=== PATIENT | male | born 1950 | race Caucasian/White ===

== ENCOUNTER 2018-07-07 02:01 | Inpatient (IN) | payer OTHER, MEDICARE ==
[2018-07-06 14:51] LABS: INR 1.14
[2018-07-07] VITALS (15 sets, daily range): BP systolic 125–172; BP diastolic 69–135
[~2018-07-07] VITALS: Ht 175.3 cm; Wt 147.4 kg
[~2018-07-07 02:01] MED LIST: ASPI81TA94 PO; ATEN100T93 PO; CARV25TA78 PO; DIGO125T73 PO; FURO40TA35 PO; GLUC-198 PO; HYDR12.561 PO; LISI-374 PO; MULT-1335 PO; WARF-1 PO; WARF7.5T26 PO
[2018-07-07] MEDS ORDERED: fentaNYL CITR 100 MCG/2 ML AMP ONE ×4 (07:00→12:48)
[2018-07-07] MEDS ORDERED: DEXAMETHASONE SOD 4 MG/ML VIAL ONE (07:01)
[2018-07-07] MEDS ORDERED: METOCLOPRAMIDE 10 MG/2 ML SDV ONE (07:01)
[2018-07-07] MEDS ORDERED: LIDOCAINE MPF 1% 5 ML VIAL ONE (07:01)
[2018-07-07] MEDS ORDERED: PROPOFOL EMUL(*) 10MG/ML 20 ML 20 ML ONE (07:01)
[2018-07-07] MEDS ORDERED: ONDANSETRON 4 MG/2 ML VIAL ONE (07:01)
[2018-07-07] MEDS ORDERED: ROPIVACAINE/EPI/CLONIDINE/KET 50 ML SYRINGE INJ ONE (07:15)
[2018-07-07] MEDS ORDERED: MIDAZOLAM 2 MG/2 ML VIAL IVP PRN (07:15)
[2018-07-07] MEDS ORDERED: ceFAZolin(*) 2GM/D5W 50ML 50 ML IVPB ONE (07:15)
[2018-07-07] MEDS ORDERED: TRANEXAMIC AC 1000 MG/10ML SDV 1,000 MG in DEXTROSE 5% 50 ML BAG 50 ML IV ONE (07:15)
[2018-07-07] MEDS ORDERED: CELECOXIB 200 MG CAP PO ONE (07:15)
[2018-07-07] MEDS ORDERED: ACETAMINOPHEN 500 MG TAB PO ONE (07:15)
[2018-07-07] MEDS ORDERED: LIDOCAINE/SOD BICARB 8.4% SYR ID ONE (07:15)
[2018-07-07] MEDS ORDERED: NORMOSOL R SOLN(*) 1000 ML BAG 1,000 ML IV PRN (07:15)
[2018-07-07] MEDS ORDERED: FAMOTIDINE 20 MG TAB PO ONE (07:15)
[2018-07-07] MEDS ORDERED: PREGABALIN 150 MG CAPSULE PO ONE (07:15)
[2018-07-07] MEDS ORDERED: BACITRACIN 50000 UNIT/VIAL 100,000 UNIT in NS 0.9% 3000 ML IRRIGATION BAG 3,000 ML IR ONE (07:15)
[2018-07-07] MEDS ORDERED: PHENYLEPHRINE 10 MG/1 ML VIAL ONE (09:34)
[2018-07-07] MEDS ORDERED: ROCURONIUM BROM 10 MG/ML 5 ML ONE (09:45)
[2018-07-07] MEDS ORDERED: LABETALOL HCL 25 MG/5 ML SYRINGE ONE (11:55)
--- NOTE | 2018-07-07 12:49 | OPERATIVE REPORT 1 ---
EVENT DATE: July 07, 2018 SURGEON: Porfirio Walters MD ANESTHESIOLOGIST: Armand Aldana MD ANESTHESIA: General plus block. DEAN: CALIN Cardenas, PIN SORTER AND BAGGER PREOPERATIVE DIAGNOSIS Right knee osteoarthritis of the medial compartment. POSTOPERATIVE DIAGNOSIS Right knee osteoarthritis of the medial compartment. PROCEDURE PERFORMED Right unicompartmental padma-knee arthroplasty of the medial side. FINDINGS The patient had a significant amount of arthritic changes associated with the medial side, but was amenable for a partial knee replacement. ESTIMATED BLOOD LOSS About 200 mL. DRAINS None. COMPLICATIONS None. TOURNIQUET TIME About 18 minutes which was only up when we realized we had a venous tourniquet. We then let it down for the rest of the case. IMPLANTS USED Wise size large right specific medial femoral component with a size C tibial tray and a 4 large poly. SPECIMENS None. INDICATIONS AND HISTORY This patient is a 67-year-old male who presented to my clinic for evaluation of knee pain and irritation going on for some time. He continued to have problems despite conservative management, so he wanted to go ahead with a partial knee replacement. We went over the risks and benefits associated with this. I told him he may need to have a total knee replacement at some point and he said he understood that and he wanted to try and get away with a medial knee replacement to try and hold off on the total knee replacement as long as possible. We went over the risks and benefits associated with this and informed consent was obtained at the last clinic visit. DESCRIPTION OF PROCEDURE As the patient was brought in the operating room, he and the procedure were both verified. He was placed supine on the operative table and after being given a spinal by Anesthesia, the right lower extremity was then prepped and draped in the usual fashion and a timeout was observed verifying the correct patient and procedure. The standard incision was made over the medial side of the knee after inflation of the tourniquet. This was taken through the skin and subcutaneous tissue and then I was able to cauterize some bleeders on the way in and then I was able to go through medial parapatellar approach and unfortunately, we still had quite a bit of bleeding associated with this and so therefore we let the tourniquet down and realized we had a venous tourniquet after 18 minutes. I then was able to peel back a little bit of the medial side in order to gain access to the medial tibial prominence. I then put in the large guide for the Wise knee system and then pinned it to the tibia using the extramedullary guide provided by the system. Once I had it into good position, I then put in the slotted cutting guide and then cut down on the medial side just next to the ACL insertion and then used the sagittal side to cut across. Unfortunately, we were unable to get the posterior piece out nor the inferior piece out all in one piece, and so therefore I then had to take it out a little bit piecemeal, and so therefore we then were able to clear out the entire aspect. I then freshened up that cut a little bit as it did get a little bit damaged secondary due to removal of the components. I then turned attention to the femur where I was able to drill the intramedullary guide superiorly. I was then able to get the standard four-in-one cutting block onto the medial side. Unfortunately, this put it a little bit out to the medial side, but this is where it fit best associated with the guide pin and so therefore the guide pin was placed and I drilled the distal holes into the distal femur. I then was able to put in the 0 pin and then was able to ream down to 0 without any difficulty. Once I was able to do this, I then tried initially to try a trial and then realized we had not cut the distal femur aspect and so therefore we put on the distal femur cutting guide and then I was able to cut this without any difficulty and this allowed the trial to sit on much better. The trial set on much better and we used the C tray which fit best on the tibia and this is when we were found to have 3 mm of space which was excellent on both flexion and extension. There was no need for further reaming or cutting. I then put on the final cutting block and reaming block in order to ream up more superiorly. I took off the edge and the medial osteophytes associated with this and then this was followed by the posterior osteophytes. I then was able to open up the posterior aspect and removed the meniscus on this side and also a large posterior osteophyte from this side. Once I was able to do that, we had significant increase in space available to this area. I then trialed the 3 mm poly with the C trial and the large femoral block. This fit very well and so therefore these were some of the final components chosen. I then was able to prep the tibia without any difficulty using the saw-tooth tooth brush blade and then clearing out the canal and then putting in the trial with the fin attached to it. We then cemented in the tibial component first and then the femoral component second. Once everything was cemented in and it was hardened. After we let it harden about 15 degrees without pressure on the heel, I was then able to trial the polys. Once again, the 3 fit pretty well but the 4 fit just a little bit better and so therefore we chose the 4 for a final component. Once we did this, everything looked good with flexion and extension. There was no signs of problems with varus or valgus stress. Everything rotated and moved very well, so therefore we irrigated with copious amounts of saline which we had throughout the case using pulsatile lavage, closed the medial parapatellar approach with a #2 Quil, this was then followed by 2-0 Vicryl in the fat layer and then a 2-0 Stratafix in the subcutaneous layer and then a subcuticular 4-0 running Monocryl in a running subcuticular stitch. This was then dressed with a Primapore and also we did an injection interarticularly of a pain cocktail prior to closure. Once we got all of the dressings on, the patient was then awakened and extubated and transferred to the PACU in stable condition where he will be admitted overnight. FARA
--- NOTE | 2018-07-07 13:05 | RADIOLOGY IMAGING REPORT ---
FACILITY: [facility] - [place] PATIENT NAME: Kevin Jauregui : 1950 MR: [id number] V: [id number] EXAM DATE: ORDERING PHYSICIAN: JOEL ABARCA TECHNOLOGIST: Location: [facility] - [place] Patient: Kevin Jauregui : 1950 Visit/Account:[id number] Date of Sevice: 07/07/2018 KNEE LIMITED RIGHT Indication: Medial compartment arthroplasty Comparison: None available Findings: 2 views right knee were obtained. Changes from medial compartment hemiarthroplasty. Components appear well seated without periprosthet ic lucency or fracture. Lateral compartment joint space is preserved with small marginal osteophytos is.. There is fluid and gas within the superficial and subcutaneous soft tissues and within the joint caps ule. IMPRESSION: 1. Changes from medial right knee arthroplasty without findings of hardware complication. 2. Mild osteoarthritic changes of the lateral compartment. Report Dictated By: Tee Patel MD at 07/07/2018 12:58 PM Report E-Signed By: Tee Patel MD at 07/07/2018 12:59 PM WSN:[id number]
[2018-07-07] MEDS ORDERED: PROMETHAZINE 25 MG/ML 1 ML AMP IVP PRN (13:10)
[2018-07-07] MEDS ORDERED: MAGNESIUM HYDROXIDE* 30ML UDCP PO PRN (13:10)
[2018-07-07] MEDS ORDERED: MAGNESIUM CITRATE 300 ML BTL PO PRN (13:10)
[2018-07-07] MEDS ORDERED: ONDANSETRON 4 MG/2 ML VIAL IVP PRN (13:10)
[2018-07-07] MEDS ORDERED: BISACODYL 10 MG SUPP PR PRN (13:10)
[2018-07-07] MEDS ORDERED: ZOLPIDEM TARTRATE 5 MG TAB PO PRN (13:10)
[2018-07-07] MEDS ORDERED: HYDROmorphone HCL 2 MG/ML SDV IVP PRN (13:10)
[2018-07-07] MEDS ORDERED: LR 1000 ML BAG 1000 ML IV PRN (13:10)
[2018-07-07] MEDS ORDERED: diphenhydrAMINE 25 MG CAP PO PRN (13:10)
[2018-07-07] MEDS ORDERED: diphenhydrAMINE 50 MG/ML VIAL IVP PRN (13:10)
[2018-07-07] MEDS ORDERED: FLUSH 10 ML SYR IVP PRN (13:10)
--- NOTE | 2018-07-07 14:55 | NUR ---
Physical Therapy Impression PT eval complete. Pt requires Dayn for bed mobility with HOB raised and use of trapeze frame. Pt completed STS transfer with RW and CGA. Pt with poor balance once standing and impulsive with mobility, requiring Dany to safely side step to HOB. PT instruction for supine LE ther-ex with emphasis on good quad contraction. PT encouraged pt to rest with LE flat on bed to facilitate extension of knee. Pt anticipates d/c with OP PT services. Physical Therapy Goals 1: Pt to cmplete bed mobility with Dany 2: Pt to cmplete transfers with SBA and pt's walker 3: Pt to ambulate 150' with SBA and pt's walker 4: Pt to asc/desc 2 stairs with CGA Patient's Goals
--- NOTE | 2018-07-07 15:06 | Hospitalist Consultation ---
History of Present Illness Requesting Physician Dr. Armendariz Reason for Consult Medical Management of Comorbidities Chief Complaint s/p right unicompartmental knee replacement History of Present Illness He was admitted s/p right unicompartmental knee replacement. It is reported the surgery went well and without complication. History Problems: (1) SARA (obstructive sleep apnea) Status: Chronic (2) Hypertension Status: Chronic (3) Cardiomyopathy Status: Chronic (4) Atrial fibrillation Status: Chronic Home Meds Reported Medications Multivitamin With Minerals (MULTIPLE VITAMIN) 1 Each Tablet, 1 EACH PO DAILY, TAB 06/30/18 Warfarin Sodium (COUMADIN) 7.5 Mg Tablet, 7.5 MG PO MON,FRI,Fri06/30/18 Warfarin Sodium (COUMADIN) 5 Mg Tablet, 5 MG PO FRI,FRI,,Fri06/30/18 Glucosa Connelly 2KCL/Chondroitin Connelly (GLUCOSAMINE & CHONDROITIN CAP) 1 Each Capsule, 1 EACH PO DAILY, CAPSULE 06/30/18 Furosemide (LASIX) 40 Mg Tablet, 1 TAB PO DAILY, TAB 06/30/18 Carvedilol (CARVEDILOL) 25 Mg Tablet, 25 MG PO BID, #10 TAB 06/30/18 Aspirin (ASPIRIN) 81 Mg Tab.chew, 81 MG PO QDAY, TAB.CHEW 06/30/18 Lisinopril (LISINOPRIL) 40 Mg Tablet, 40 MG PO QDAY 12/09/13 Discontinued Reported Medications Hydrochlorothiazide (HYDROCHLOROTHIAZIDE) 12.5 Mg Tablet, 1 TAB PO QDAY TAKE ONE TABLET BY MOUTH EVERY DAY 12/09/13 Atenolol (ATENOLOL) 100 Mg Tablet, 1 TAB PO QDAY, TAB TAKE ONE TABLET BY MOUTH ONCE A DAY 12/09/13 Discontinued Scripts Digoxin (DIGOXIN) 125 Mcg Tablet, 125 MCG PO QDAY, #30 TAB 0 Refills Prov:KRISTIN BERKOWITZ MD 12/09/13 Allergies: Coded Allergies: No Known Drug Allergies (Unverified , 12/09/13) Patient History: Cardiac arrest FATHER, MOTHER, FH: alcoholism FATHER, FH: diabetes mellitus MOTHER, FH: diabetic complications MOTHER, Hx Smoking: Yes (1PP X2 DAYS X 25 YRS QUIT IN 1999) Smoking Status: Former Smoker Caffeine Intake: Coffee Caffeine/Cups Per Day: 20 OUNCE CUP DAILY Hx Alcohol Use: No Hx Substance Use Disorder: No Social Drug Use: Never History of IV Drug Use: No Review of Systems All Systems Reviewed/Normal: Yes, Except as Noted Exam Vital Signs Vital Signs Date Time Temp Pulse Resp B/P (MAP) Pulse Ox O2 Delivery O2 Flow Rate FiO2 07/07/18 13:52 98.1 59 16 166/83 (110) 95 Nasal Cannula 3.0 General Appearance: Alert, Awake, No Acute Distress, Afebrile Neuro: No Gross deficits Cardiovascular: Regular Rate and Rhythm Respiratory: No Respiratory Distress, Clear to Auscultation Psych: Alert & Oriented X3, Appropriate Mood & Affect Assessment and Plan Problems: (1) S/P right unicompartmental knee replacement Status: Acute Assessment & Plan: Followed by Dr. Walters. He will be restarted on his usual Coumadin dose tonight. (2) Atrial fibrillation Status: Chronic Assessment & Plan: He is on chronic treatment with Carvedilol and Warfarin. Carvedilol has been restarted with hold parameters. Will resume Warfarin tonight. (3) Cardiomyopathy Status: Chronic Assessment & Plan: He does have ICD and Pacemaker. Interrogation done in PACU, working normally. (4) Hypertension Status: Chronic Assessment & Plan: Continue chronic Lisinopril with hold parameters. Will hold Lasix at this time. (5) SARA (obstructive sleep apnea) Status: Chronic Assessment & Plan: He did bring his CPAP to use during admission. Venous Thromboembolism Antithrombotics Is Pt On Any Antithrombotics?: Yes Exam Sepsis Risk: No Definite Risk ROB RODRIGUEZP Jul 07, 2018 15:06
--- NOTE | 2018-07-07 15:37 | NUR ---
SPANISH TUTOR in use for pain control. Pt moving during BP assessment; Pt refused reassessment after extraneous reading.
[2018-07-07] MEDS ORDERED: NS(*) 0.9% 500 ML BAG 500 ML ONE (17:50)
[2018-07-07] MEDS: ceFAZolin(*) 2GM/D5W 50ML 50 ML IVPB SCH (17:57)
[2018-07-07] MEDS: CARVEDILOL 25 MG TABLET PO SCH (18:15)
--- NOTE | 2018-07-07 18:16 | NUR ---
Pt self-administered medications scheduled for 07/07 @ 2100 from home supply. Educated pt, pt verbalized understanding.
[2018-07-07] MEDS ORDERED: WARFARIN SOD 5 MG TAB PO SCH (21:00)
[2018-07-08] MEDS: ceFAZolin(*) 2GM/D5W 50ML 50 ML IVPB SCH ×2 (00:47→08:49)
[2018-07-08 07:47] VITALS: BP 142/83
[2018-07-08] MEDS ORDERED: OXYC-865 PO (08:14)
[2018-07-08] MEDS: CARVEDILOL 25 MG TABLET PO SCH (08:48)
[2018-07-08 08:49] VITALS: BP 133/69
[2018-07-08] MEDS ORDERED: ASPIRIN 81 MG CHEW PO SCH (09:00)
[2018-07-08] MEDS ORDERED: LISINOPRIL 20 MG TAB PO SCH (09:00)
--- NOTE | 2018-07-08 10:41 | Hospitalist Progress Note ---
Subjective Progress Notes Subjective He was admitted after knee surgery. He has no complaints this morning. He had no acute events overnight. He would like to go home today. Patient Complains of: Cardiovascular: No: Chest Pain Respiratory: No: Shortness of Breath Physical Exam Vital Signs Date Time Temp Pulse Resp B/P (MAP) Pulse Ox O2 Delivery O2 Flow Rate FiO2 07/08/18 08:49 66 133/69 (90) 07/08/18 07:54 94 Nasal Cannula 1.0 07/08/18 07:47 99.0 16 Intake and Output 07/08/18 01:00 Intake Total 2140 ml Balance 2140 ml Intake Oral 240 ml IV Total 1900 ml # Voids 1 General Appearance: Alert, Awake, No Acute Distress, Afebrile Neuro: No Gross deficits Cardiovascular: Regular Rate and Rhythm Respiratory: No Respiratory Distress, Clear to Auscultation GI: Soft and Non-Tender Psych: Alert & Oriented X3, Appropriate Mood & Affect Result Diagram: 07/08/18 0543 Assessment and Plan Problems: (1) S/P right unicompartmental knee replacement Status: Acute Assessment & Plan: Followed by Dr. Walters. He resumed his usual Coumadin dose 07/07. He will get INR checked in one week. No bridging required. (2) Atrial fibrillation Status: Chronic Assessment & Plan: He is on chronic treatment with Carvedilol and Warfarin. Carvedilol was restarted with hold parameters. (3) Cardiomyopathy Status: Chronic Assessment & Plan: He does have ICD and Pacemaker. Interrogation done in PACU, working normally. (4) Hypertension Status: Chronic Assessment & Plan: Continue chronic Lisinopril with hold parameters. He will resume Lasix tomorrow at home. (5) SARA (obstructive sleep apnea) Status: Chronic Assessment & Plan: He did bring his CPAP to use during admission. He will be going home with oxygen. He will follow up with PCP in 1-2 weeks regarding oxygen use. Exam Sepsis Risk: No Definite Risk ROB RODRIGUEZ July 08, 2018 10:41
[2018-07-08 12:44] VITALS: BP 144/81
--- NOTE | 2018-07-08 13:45 | NUR ---
Physical Therapy Impression Pt safe for DC when medically appropriate. Attempted to ambulate on room air, SO2 decreased to 83%. 1 L O2 increased SO2 to >90%. Physical Therapy Goals 1: Pt to cmplete bed mobility with Dany 2: Pt to cmplete transfers with SBA and pt's walker 3: Pt to ambulate 150' with SBA and pt's walker 4: Pt to asc/desc 2 stairs with CGA Patient's Goals
[2018-07-08] MEDS ORDERED: WARFARIN SOD 7.5 MG TAB PO SCH (21:00)
== END 2018-07-08 13:28 | disposition home or self-care (01) | DRG 470 ==
LOC: OR 02:01 → OBSVTOIN 13:50 → MED 13:50 → INTOOBSV 13:50
PROVIDERS: ADMIT Orthopaedic Surgery; ATTEND Orthopaedic Surgery
PROC: 0SRC0LA Replacement of Right Knee Joint with Medial Unicondylar Synthetic Substitute, Uncemented, Open Approach (ICD-10-PCS; principal; 2018-07-07 09:18)
DX: M17.11 Unilateral primary osteoarthritis, right knee (principal); I42.9 Cardiomyopathy, unspecified; I48.2 Chronic atrial fibrillation; G47.33 Obstructive sleep apnea (adult) (pediatric); F32.9 Major depressive disorder, single episode, unspecified; I10 Essential (primary) hypertension; E05.90 Thyrotoxicosis, unspecified without thyrotoxic crisis or storm; Z79.01 Long term (current) use of anticoagulants; Z95.0 Presence of cardiac pacemaker; Z87.891 Personal history of nicotine dependence
CPT/HCPCS: 36415; 85014; 85018; 85610; 86850; 86900; 86901; 97161; J0690; J1100; J2001; J2250; J2370; J2405; J2704; J2765; J3010; J7040; J7060